=== PATIENT | male | born 1940 | race Caucasian/White ===

== ENCOUNTER 2017-05-13 07:02 | Day surgery (SDC) | payer MEDICARE, OTHER ==
[~2017-05-13] VITALS: Ht 188 cm; Wt 103.2 kg
[~2017-05-13 07:02] MED LIST: ACET325; ATOR10; BACL10 PO; COLCRYS0.6 MG PO; DOCU100 PO; ESZO1 PO; ESZO2; GABA300 PO; GABA400 PO; METF500C PO; Naprosyn500 MG PO; Norco 5-325 Ta1 EACH PO; PANT40 PO; PROP50 PO; QUIN10; QUIN10 PO; QUINAPRIL HCTZ PO; TAMS.4ER PO; ZOLP6.25 PO
== END 2017-05-13 09:38 | disposition home or self-care (01) ==
LOC: ORSCSDS 07:02
PROVIDERS: Internal Medicine Gastroenterology
PROC: 0DBH8ZX Excision of Cecum, Via Natural or Artificial Opening Endoscopic, Diagnostic (ICD-10-PCS; principal; 2017-05-13 08:30)
PROC: 0DBL8ZX Excision of Transverse Colon, Via Natural or Artificial Opening Endoscopic, Diagnostic (ICD-10-PCS; principal; 2017-05-13 08:30)
PROC: 0DBP8ZX Excision of Rectum, Via Natural or Artificial Opening Endoscopic, Diagnostic (ICD-10-PCS; principal; 2017-05-13 08:30)
PROC: 0DBK8ZX Excision of Ascending Colon, Via Natural or Artificial Opening Endoscopic, Diagnostic (ICD-10-PCS; principal; 2017-05-13 08:30)
DX: K59.00 Constipation, unspecified (principal); D12.0 Benign neoplasm of cecum; D12.2 Benign neoplasm of ascending colon; D12.3 Benign neoplasm of transverse colon; K62.1 Rectal polyp; K64.8 Other hemorrhoids; K57.30 Diverticulosis of large intestine without perforation or abscess without bleeding; I10 Essential (primary) hypertension; E11.9 Type 2 diabetes mellitus without complications; E78.5 Hyperlipidemia, unspecified; N40.0 Benign prostatic hyperplasia without lower urinary tract symptoms; E05.90 Thyrotoxicosis, unspecified without thyrotoxic crisis or storm; Z87.891 Personal history of nicotine dependence; Z79.84 Long term (current) use of oral hypoglycemic drugs; Z79.899 Other long term (current) drug therapy
CPT/HCPCS: 82947; 88305; J7120

== ENCOUNTER 2017-06-11 11:03 | Day surgery (SDC) | payer MEDICARE, OTHER ==
[~2017-06-11] VITALS: Ht 188 cm; Wt 105.0 kg
== END 2017-06-11 13:03 | disposition home or self-care (01) ==
LOC: ORSCSDS 11:03
PROVIDERS: Ophthalmology
PROC: 08RK3JZ Replacement of Left Lens with Synthetic Substitute, Percutaneous Approach (ICD-10-PCS; principal; 2017-06-11 12:30)
DX: H25.12 Age-related nuclear cataract, left eye (principal); H21.81 Floppy iris syndrome; I10 Essential (primary) hypertension; E03.9 Hypothyroidism, unspecified; Z79.899 Other long term (current) drug therapy
CPT/HCPCS: 82947; J2250; J7040; V2632

== ENCOUNTER 2022-01-15 12:38 | Emergency (ER) | payer MEDICARE, OTHER ==
[~2022-01-15] VITALS: Ht 188 cm; Wt 100.7 kg
[~2022-01-15 12:38] MED LIST changes: +Aspir 8181 MG; +COLCRYS0.6 M1; +GABA400; +METO25ER
== END 2022-01-15 14:50 | disposition home or self-care (01) ==
LOC: ER 12:38
DX: S61.422A Laceration with foreign body of left hand, initial encounter (principal); W27.0XXA Contact with workbench tool, initial encounter; I10 Essential (primary) hypertension; E11.40 Type 2 diabetes mellitus with diabetic neuropathy, unspecified; N40.0 Benign prostatic hyperplasia without lower urinary tract symptoms; Z23 Encounter for immunization; Z88.6 Allergy status to analgesic agent; Z88.5 Allergy status to narcotic agent; Z88.8 Allergy status to other drugs, medicaments and biological substances; Z79.899 Other long term (current) drug therapy; Z87.891 Personal history of nicotine dependence
CPT/HCPCS: 73120; 90714

== ENCOUNTER 2023-09-28 13:46 | Day surgery (SDC) | payer MEDICARE, OTHER ==
[~2023-09-28] VITALS: Ht 188 cm; Wt 101.8 kg
[~2023-09-28 13:46] MED LIST changes: +Atropine Sulfate 0.1 MG/ML 10ML SYR ONE; +Glycopyrrolate 0.2 MG/ML 1MLVIAL ONE; +Lactated Ringer's 1,000 ML IV ONE; +Lidocaine 2% 5 ML SDV ONE; +Lidocaine HCl/Pf 1% 5 ML VIAL ONE; +Methylene Blue 1% 100 MG/10 ML VIAL ONE; +Ondansetron HCl 2 MG / ML 2ML Vial ONE; +ePHEDrine Sulfate 50 MG/ML 1ML Injection ONE; +propofoL 50 ML IV ONE
[2023-09-28] MEDS ORDERED: HYDROCHLOROTH12.5 MG (14:58)
[2023-09-28] MEDS ORDERED: ALLO300 (14:59)
[2023-09-28] MEDS ORDERED: Lactated Ringer's 1,000 ML IV ONE (15:40)
[2023-09-28 17:12] VITALS: BP 105/78
== END 2023-09-28 17:14 | disposition home or self-care (01) ==
LOC: ORSCSDS 13:46
PROVIDERS: Internal Medicine Gastroenterology
PROC: 0DBK8ZX Excision of Ascending Colon, Via Natural or Artificial Opening Endoscopic, Diagnostic (ICD-10-PCS; principal; 2023-09-28 15:15)
PROC: 0DBM8ZX Excision of Descending Colon, Via Natural or Artificial Opening Endoscopic, Diagnostic (ICD-10-PCS; principal; 2023-09-28 15:15)
DX: Z12.11 Encounter for screening for malignant neoplasm of colon (principal); Z86.010 Personal history of colon polyps; R15.0 Incomplete defecation; D12.2 Benign neoplasm of ascending colon; D12.4 Benign neoplasm of descending colon; K63.5 Polyp of colon; K57.30 Diverticulosis of large intestine without perforation or abscess without bleeding; I10 Essential (primary) hypertension; E03.9 Hypothyroidism, unspecified; E78.5 Hyperlipidemia, unspecified; M10.9 Gout, unspecified; R73.03 Prediabetes; Z79.84 Long term (current) use of oral hypoglycemic drugs; Z79.899 Other long term (current) drug therapy
CPT/HCPCS: 82947; 88305; J0461; J2001; J2405; J2704; J7120; Q9968

== ENCOUNTER 2024-11-11 09:58 | Day surgery (SDC) | payer MEDICARE, OTHER ==
[~2024-11-11] VITALS: Ht 188 cm; Wt 100.6 kg
[~2024-11-11 09:58] MED LIST changes: +ALLO300; -Atropine Sulfate 0.1 MG/ML 10ML SYR ONE; +Bupivacaine 0.5% W/EPI 1:200000 SDV 30 ML Vial ONE; -Glycopyrrolate 0.2 MG/ML 1MLVIAL ONE; +HYDROCHLOROTH12.5 MG; -Lactated Ringer's 1,000 ML IV ONE; -Lidocaine 2% 5 ML SDV ONE; +Lidocaine HCl 2% 10 ML SDA ONE; -Lidocaine HCl/Pf 1% 5 ML VIAL ONE; -Methylene Blue 1% 100 MG/10 ML VIAL ONE; -Ondansetron HCl 2 MG / ML 2ML Vial ONE; -ePHEDrine Sulfate 50 MG/ML 1ML Injection ONE; -propofoL 50 ML IV ONE
[2024-11-11] MEDS ORDERED: ZOLP12.5 PO (11:04)
[2024-11-11] MEDS ORDERED: FentaNYL Citrate 50 MCG/ML 2 ML Injection ONE (11:25)
[2024-11-11] MEDS ORDERED: CeFAZolin Sodium 2,000 MG VIAL ONE (11:32)
[2024-11-11] MEDS ORDERED: Bupivacaine 0.5% W/EPI 1:200000 SDV 30 ML Vial ONE (12:22)
--- NOTE | 2024-11-11 12:43 | NUR ---
11/11/24 1243 SARANYA RAMSEY WHEN DISCUSSING PROCEDURE WITH PATIENT, IT BECAME APPARENT THAT THE SCHEDULED PROCEDURE WAS INCORRECT, ANTICIPATED PROCEDURE TODAY IS LEFT FOOT CHEILECTOMY. PER PT REPORTS. H&P, CONSENT, ETC UPDATED BY IN PRE OP. PT IN AGREEMENT, OR NOTIFIED.
[2024-11-11 14:16] VITALS: BP 122/83
== END 2024-11-11 14:03 | disposition home or self-care (01) ==
LOC: ORSCSDS 09:58
PROVIDERS: Podiatrist Foot & Ankle Surgery
PROC: 0QBR0ZZ Excision of Left Toe Phalanx, Open Approach (ICD-10-PCS; principal; 2024-11-11 12:00)
PROC: 0QBP0ZZ Excision of Left Metatarsal, Open Approach (ICD-10-PCS; principal; 2024-11-11 12:00)
PROC: 0QSP04Z Reposition Left Metatarsal with Internal Fixation Device, Open Approach (ICD-10-PCS; principal; 2024-11-11 12:00)
DX: M20.5X2 Other deformities of toe(s) (acquired), left foot (principal); M79.675 Pain in left toe(s); M79.672 Pain in left foot; E11.42 Type 2 diabetes mellitus with diabetic polyneuropathy; I50.9 Heart failure, unspecified; I25.10 Atherosclerotic heart disease of native coronary artery without angina pectoris; E78.5 Hyperlipidemia, unspecified; Z79.899 Other long term (current) drug therapy; Z79.84 Long term (current) use of oral hypoglycemic drugs
CPT/HCPCS: 82947; J0690; J2003; J2704; J3010; J7120